=== PATIENT | male | born 2000 | race Caucasian/White ===

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

== ENCOUNTER → 2024-01-22 | Outpatient (CLI) | payer BC | LOC: M RAD 10:29 | PROVIDERS: ATTEND Family Medicine | DX: R10.32 Left lower quadrant pain (principal) ==

== ENCOUNTER 2024-04-12 13:09 | Emergency (ER) | payer BC ==
[~2024-04-12] VITALS: Ht 180.3 cm; Wt 87.0 kg
[2024-04-12 14:55] VITALS: BP 117/76; TEMP 97.3; O2SAT 97
== END 2024-04-12 15:00 | disposition home or self-care (01) ==
LOC: M ED 13:09
DX: S30.93XA Unspecified superficial injury of penis, initial encounter (principal); N48.29 Other inflammatory disorders of penis; W54.8XXA Other contact with dog, initial encounter; Y92.9 Unspecified place or not applicable; Y93.9 Activity, unspecified; Y99.9 Unspecified external cause status